=== PATIENT | female | born 1955 ===

== ENCOUNTER 2024-04-16 20:59 | Emergency (ER) | payer MEDICARE, OTHER ==
[~2024-04-16] VITALS: Ht 170.2 cm; Wt 65.9 kg
[2024-04-16] MEDS: acetaminophen 325mg tablet PO ONE (21:52)
[2024-04-16] MEDS ORDERED: HYDR-3965 PO (22:31)
[2024-04-16] MEDS: HYDROcodone/acetaminophen 10/325mg tab PO ONE (22:38)
[2024-04-16 23:02] VITALS: BP 124/73; PULSE 68; RESP 18; TEMP 98.1; O2SAT 96
== END 2024-04-16 23:04 | disposition home or self-care (01) ==
LOC: ER 21:00
DX: S82.001A Unspecified fracture of right patella, initial encounter for closed fracture (principal); Z88.8 Allergy status to other drugs, medicaments and biological substances; Z88.2 Allergy status to sulfonamides; W01.0XXA Fall on same level from slipping, tripping and stumbling without subsequent striking against object, initial encounter; Y93.89 Activity, other specified; Y92.89 Other specified places as the place of occurrence of the external cause; Y99.8 Other external cause status
CPT/HCPCS: 29505; 73564; 99284